=== PATIENT | female | born 1930 | race Caucasian/White ===

== ENCOUNTER 2016-10-06 15:35 | Emergency (ER) | payer OTHER, MEDICARE ==
--- NOTE | 2016-10-06 15:45 | UCPHY ---
H & P Patient Type: Established HPI/ROS: HPI CHIEF COMPLAINT: Right shoulder pain HISTORY OF PRESENT ILLNESS: this patient very pleasant 86-year-old female significant past medical history for atrial fibrillation, pacemaker, chronic kidney disease, hypertension, wheelchair bound due to his severe significant arthritis, generalized weakness, presents to the urgent care with right shoulder pain she tells me about 2 weeks ago she over extended her right arm. Her arm was pulled backwards. Since then she has had intermittent right shoulder pain. At times it gets better but however at times gets worse. She tells me the past 24 hours she has anterior right shoulder pain that is worse. She thinks she may have re-injured it. She is able to adduct it however has trouble when she abducts it. This patient tells me that she does have available oxycodone however is not take anything for pain. She cannot take NSAIDs due to underlying kidney disease. Past Medical History: Hypertension, AFib, pacemaker, severe arthritis, sedentary, wheelchair-bound, chronic kidney disease, hypertension on Coumadin Past Surgical History: Bilateral knee replacements, hip surgery, pacemaker Social History: denies use of drugs alcohol tobacco products. Wheelchair bound. at bedside. Family History: Noncontributory ROS REVIEW OF SYSTEMS: A comprehensive 10 point review of systems is otherwise negative aside from elements mentioned in the history of present illness. Exam Constitutional triage nursing summary reviewed, vital signs reviewed, awake/ alert. Eyes normal conjunctivae and sclera, EOMI, PERRLA. HENT normal inspection, atraumatic, moist mucus membranes, no epistaxis, neck supple/ no meningismus, no raccoon eyes. Respiratory clear to auscultation bilaterally, normal breath sounds, no respiratory distress, no wheezing. Cardiovascular rate normal, regular rhythm, no murmur, no edema, distal pulses normal. Gastrointestinal soft, non-tender, no rebound, no guarding, normal bowel sounds, no distension, no pulsatile mass. Genitourinary no CVA tenderness. 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 Skin pink, warm, & dry, no rash, skin atraumatic. Neurologic awake, alert and oriented x 3, AAOx3, moves all 4 extremities equally, motor intact, sensory intact, CN II-XII intact, normal cerebellar, normal vision, normal speech. Psychiatric normal mood/affect. Heme/Lymph/Immune no lymphadenopathy. Differential Diagnosis: includes but is not limited to in a particular, shoulder strain, musculoskeletal injury, arthritis, humeral neck fracture, dislocation relocation dislocation, rotator cuff injury, deltoid injury Medical Decision Making: plan for this patient had x-ray right shoulder [place] for pain control. Do recommend close orthopedic follow-up as she may have a rotator cuff injury. May need steroid injection. Re-evaluation: ED x-ray right shoulder: Shows tendinopathy in arthritis. No acute fracture. Image interpreted by myself. 1650: Patient is resting comfortably here in the urgent care, x-ray reviewed shows tendinopathy arthritis. Will place patient on [place]. She needs to follow up with Orthopedics. May need injection. She is agreeable with this. Source: Patient - Medical/Surgical History Hx Asthma: No Hx Chronic Respiratory Disease: No Hx Diabetes: No Hx Cardiac Disease: Yes Hx Renal Disease: Yes Hx Cirrhosis: No Hx Alcoholism: No Hx HIV/AIDS: No Hx Splenectomy or Spleen Trauma: No Other PMH: 1. HTN. 2. HYPERLIP. 3. AFIB status post PACEMAKER. 4. NEUROPATHY. 5. OSTEOSPOROSIS. 6. AUTONOMIC DYSFX. 7. CHRONIC KIDNEY DZ STG 4, . 8. gall bladder removal. 9. fundiplacation. 10. GOUT. 11. DIVERTICULITIS. 12. Orthopedic surgeries including a right hip arthroplasty and right knee arthroplasty - Family History Significant Family History: No pertinent family hx - Social History Smoking Status: Never smoked Constitutional: Initial Vital Signs Temperature (C) 36.7 C 10/06/16 15:46 Heart Rate 70 10/06/16 15:46 Respiratory Rate 18 10/06/16 15:46 Blood Pressure 166/69 H 10/06/16 15:46 O2 Sat (%) 98 10/06/16 15:46 O2 Delivery Mode Room Air Allergies/Adverse Reactions: NSAIDS (Non-Steroidal Anti-Inflamma [Nsaids] Allergy (Unknown, Verified 13:05) RELATED TO KIDNEY DISEASE IV Contrast Allergy (Uncoded 07/16/16 14:04) Home Medications: Medication Instructions Recorded Aspirin [Aspirin 81mg (*)] 81 mg PO DAILY@18 03/18/14 Atenolol [Tenormin 50 mg (*)] 50 mg PO BID 03/18/14 Calcium Carb/Vit D3/Minerals 500 mg PO DAILY 03/18/14 [Calcium 1,200 mg Tablet Chew] Gabapentin [Neurontin 100 MG (*)] 300 mg PO BID 03/18/14 Lisinopril [Zestril 10 mg (*)] 10 mg PO BID 03/18/14 amLODIPine BESYLATE [Norvasc 5 mg 5 mg PO DAILY@12 03/18/14 (*)] Herbals/Supplements -Info Only 1 ea PO DAILY 07/22/14 Warfarin Sodium [Coumadin 5MG (*)] 5 mg PO TUFR@16 07/22/14 ALPRAZolam [Xanax 0.5 MG (*)] 0.5 mg PO HS 11/14/15 Denosumab [Prolia] 60 mg SQ Q180D 11/14/15 Cholecalciferol Vit D3 [Vitamin D3 2,000 units PO DAILY 07/16/16 (*)] Warfarin Sodium [Coumadin 2.5MG 2.5 mg PO SUMOWETHSA 07/16/16 (*)] Docusate Sodium [Colace 100 MG (*)] 100 mg PO TID #30 cap 07/21/16 Hydrocodone/APAP 5/325 [[place] 1 - 2 tab PO Q4-6PRN PRN #30 tab 07/21/16 5/325 (*)] Hydrocodone/APAP 5/325 [[place] 1 - 2 tab PO Q6H PRN #20 tab 10/06/16 5/325 (*)] Medical Decision Making - Data Points Medications Given: Discontinued Medications Hydrocodone Bitart/Acetaminophen ([place] 5/325) 1 tab PO EDNOW ONE Stop: 10/06/16 15:50 Last Admin: 10/06/16 15:54 Dose: 1 tab Departure - Departure Disposition: Home, Routine, Self-Care Clinical Impression: Tendonitis Right shoulder strain Qualifiers: Encounter type: initial encounter Qualified Code(s): S46.911A - Strain of unspecified muscle, fascia and tendon at shoulder and upper arm level, right arm , initial encounter Condition: Good Instructions: Rotator Cuff Injury (ED) Referrals: Sarath Lara MD [Primary Care Provider] - As per Instructions Cy Cage MD [Medical Doctor] - As per Instructions Prescriptions: Hydrocodone/APAP 5/325 [[place] 5/325 (*)] 1 - 2 tab PO Q6H PRN #20 tab PRN Reason: Pain, Mild - PQRS PQRS Measurement: 134: Depression screening and followup, PRIME MD-PHQ2 (12 years and older) Over the last 2 weeks, how often have you been bothered by any of the following problems? 1. Feeling down, depressed, or hopeless? 2. Little interest or pleasure in doing things? Patient answered no to both 1 and 2 130: Documentation of medications. Reviewed all patient medications, doses, route and frequency. 226: Do you smoke? No. 47: 65 and older: Advanced care planning. Patient designates surrogate decision maker as Spouse 51: 18 years old and older with diagnosis of COPD, spirometry performance. Patient has no history of COPD 52: 18 years old and older with COPD and symptoms of COPD or FEV1<60% predicted prescribed a B Agonist. Spirometry not performed; equipment not available.
[2016-10-06 15:48] VITALS: BP 166/69; PULSE 70; RESP 18; TEMP 98.1; O2SAT 98
[2016-10-06] MEDS ORDERED: HYDROCODONE/APAP 5/325 TAB PO ONE (15:49)
== END 2016-10-06 17:20 | disposition home or self-care (01) ==
LOC: CED 15:35
DX: S46.911A Strain of unspecified muscle, fascia and tendon at shoulder and upper arm level, right arm, initial encounter (principal); M75.31 Calcific tendinitis of right shoulder; Y92.019 Unspecified place in single-family (private) house as the place of occurrence of the external cause; X50.0XXA Overexertion from strenuous movement or load, initial encounter; Y99.8 Other external cause status
CPT/HCPCS: 73030; G0463; 99214-PO

== ENCOUNTER → 2017-03-13 | Outpatient (CLI) | payer OTHER, MEDICARE | LOC: BHCLAF 14:15 | PROVIDERS: ATTEND Internal Medicine Cardiovascular Disease | DX: I48.0 Paroxysmal atrial fibrillation (principal); I73.9 Peripheral vascular disease, unspecified; I10 Essential (primary) hypertension; Z95.0 Presence of cardiac pacemaker | CPT/HCPCS: 93005-PO ==

== ENCOUNTER 2017-04-30 09:27 | Emergency (ER) | payer OTHER, MEDICARE ==
[2017-04-30 09:51] VITALS: RESP 18
[2017-04-30 10:38] VITALS: O2SAT 98
--- NOTE | 2017-04-30 10:57 | EDPHY ---
H & P Stated Complaint: llq abd pain prior to evacuation Time Seen by Provider: 04/30/17 09:49 HPI/ROS: Chief Complaint: Abdominal pain, changes in bowel movements HPI: 86-year-old woman history of diverticulosis and chronic constipation is been having changes in her bowel movements in the last couple weeks. For the last week or 2 she has had loose stools. There has been no black stools or blood. Today she had some pain in the left lower quadrant is concerned about diverticulitis. Denies any fevers or chills. Yesterday afternoon she had several episodes of loose stools. No nausea or vomiting. No chest pain or shortness of breath. No urinary urgency or frequency. Pain is about a 3/10. ROS: 10 point Review of Systems is negative except as noted in the HPI. PMH: Diverticulosis, chronic constipation, renal insufficiency, [place] fundoplication Social History: No smoking, no alcohol, no recreational drug use Family History: non-contributory Physical Exam: Gen: Awake, Alert, No Distress HEENT: Nose: no rhinorrhea Eyes: PERRLA, EOMI Mouth: Moist mucosa Neck: Supple, no JVD Chest: nontender, lungs clear to auscultation Heart: S1, S2 normal, no murmur Abd: Soft, moderate left lower quadrant tenderness without guarding or rebound, no guarding Back: no CVA tenderness, no midline tenderness Ext: no edema, non-tender Skin: no rash Neuro: CN II-XII intact, Sensation grossly intact, Strength 5/5 in bilateral upper and lower extremities - Medical/Surgical History Hx Asthma: No Hx Chronic Respiratory Disease: No Hx Diabetes: No Hx Cardiac Disease: Yes Hx Renal Disease: Yes Hx Cirrhosis: No Hx Alcoholism: No Hx HIV/AIDS: No Hx Splenectomy or Spleen Trauma: No Other PMH: 1. HTN. 2. HYPERLIP. 3. AFIB status post PACEMAKER. 4. NEUROPATHY. 5. OSTEOSPOROSIS. 6. AUTONOMIC DYSFX. 7. CHRONIC KIDNEY DZ STG 4, . 8. gall bladder removal. 9. fundiplacation. 10. GOUT. 11. DIVERTICULITIS. 12. Orthopedic surgeries including a right hip arthroplasty and right knee arthroplasty - Social History Smoking Status: Never smoked Constitutional: Initial Vital Signs Temperature (C) 37.1 C 04/30/17 09:47 Heart Rate 73 04/30/17 09:47 Respiratory Rate 18 04/30/17 09:47 Blood Pressure 111/86 H 04/30/17 09:47 O2 Sat (%) 96 04/30/17 09:47 O2 Delivery Mode Room Air Allergies/Adverse Reactions: hydrocodone Allergy (Intermediate, Verified 04/30/17 09:42) [place] NSAIDS (Non-Steroidal Anti-Inflamma [Nsaids] Allergy (Unknown, Verified 09:42) RELATED TO KIDNEY DISEASE IV Contrast Allergy (Uncoded 07/16/16 14:04) Home Medications: Medication Instructions Recorded Aspirin [Aspirin 81mg (*)] 81 mg PO DAILY@18 03/18/14 Atenolol [Tenormin 50 mg (*)] 50 mg PO BID 03/18/14 Calcium Carb/Vit D3/Minerals 500 mg PO DAILY 03/18/14 [Calcium 1,200 mg Tablet Chew] Gabapentin [Neurontin 100 MG (*)] 300 mg PO BID 03/18/14 Lisinopril [Zestril 10 mg (*)] 10 mg PO BID 03/18/14 amLODIPine BESYLATE [Norvasc 5 mg 5 mg PO DAILY@12 03/18/14 (*)] Herbals/Supplements -Info Only 1 ea PO DAILY 07/22/14 Warfarin Sodium [Coumadin 5MG (*)] 5 mg PO TUFR@16 07/22/14 ALPRAZolam [Xanax 0.5 MG (*)] 0.5 mg PO HS 11/14/15 Denosumab [Prolia] 60 mg SQ Q180D 11/14/15 Cholecalciferol Vit D3 [Vitamin D3 2,000 units PO DAILY 07/16/16 (*)] Warfarin Sodium [Coumadin 2.5MG 2.5 mg PO SUMOWETHSA 07/16/16 (*)] Docusate Sodium [Colace 100 MG (*)] 100 mg PO TID #30 cap 07/21/16 oxyCODONE/APAP 5/325 [Percocet 1 - 2 tab PO Q6H PRN #20 tab 10/06/16 5/325 (*)] Medical Decision Making - Diagnostics Imaging Results: Imaging Impressions Abdomen/Pelvis CT 04/30/17 10:00 Impression: 1. Sigmoid diverticulosis, without evidence of diverticulitis. 2. Cholecystectomy. 3. Renal masses show no significant change from 2014 and are thought to be cysts. I telephoned [facility] Emergency Department and left a phone message for Dr. Sanchez at 1045 hours. Attention: This examination does not use radiographic contrast, and as such, provides only a limited evaluation of the abdomen, pelvis, and retroperitoneum. If there is further clinical suspicion for pathological conditions other than obstructive uropathy, a complete CT evaluation of the abdomen and pelvis utilizing intravenous, oral, and rectal contrast should be considered. Imaging: Discussed imaging studies w/ train caller Radiologist ED Course/Re-evaluation: 86-year-old with left lower quadrant pain history of diverticulosis with changes in her bowel patterns. She does have some tenderness here. Will obtain a CT scan with noncontrast as she has renal insufficiency and reassess. CT scan shows no acute process. She does have diverticulosis but no findings suggestive of inflammation. Patient has mild left lower quadrant tenderness with no peritoneal signs whatsoever. She has a history of C diff colitis in the past is very concerned about getting this again. Given the negative CT findings and benign exam I am hesitant to start her on antibiotics at this time. We have discussed at length possibilities for care. She would prefer to wait and follow up with primary care physician. We have made a appointment for her for Thursday at 10:30 a.m. with her primary, Dr. Lara. She knows that if symptoms worsen she will return to the emergency department. - Data Points Laboratory Results: 04/30/17 11:14 Urine Color Pending Urine Appearance Pending Urine pH Pending Ur Specific [place] Pending Urine Protein Pending Urine Ketones Pending Urine Blood Pending Urine Nitrate Pending Urine Bilirubin Pending Urine Urobilinogen Pending Ur Leukocyte Esterase Pending Urine Glucose Pending Departure - Departure Disposition: Home, Routine, Self-Care Clinical Impression: Abdominal pain, Diarrhea Condition: Good Instructions: Abdominal Pain (ED), Acute Diarrhea (ED) Additional Instructions: Follow up with Dr. Lara on Thursday. He have an appointment at 10:30 a.m. Return to the emergency department for increasing pain, worsening diarrhea, nausea, vomiting, blood in her stool or dark black bowel movements, or any other concerns. Referrals: Sarath Lara MD [Primary Care Provider] - As per Instructions
[2017-04-30 11:17] LABS: COLOR YELLOW; LEUKOCYTE ESTERASE,URINE NEGATIVE (NEGATIVE); NITRITE,URINE NEGATIVE (NEGATIVE); PH,URINE 7.5 (5.0-7.5)
[2017-04-30 11:45] VITALS: BP 148/87; PULSE 78; TEMP 98.1
== END 2017-04-30 11:42 | disposition home or self-care (01) ==
LOC: CED 09:27
DX: R10.32 Left lower quadrant pain (principal); R19.7 Diarrhea, unspecified; I12.9 Hypertensive chronic kidney disease with stage 1 through stage 4 chronic kidney disease, or unspecified chronic kidney disease; N18.4 Chronic kidney disease, stage 4 (severe); Z79.01 Long term (current) use of anticoagulants; Z79.82 Long term (current) use of aspirin; Z95.0 Presence of cardiac pacemaker
CPT/HCPCS: 74176-PO; 81003-PO

== ENCOUNTER 2017-09-22 13:01 | Observation (INO) | payer OTHER, MEDICARE ==
--- NOTE | 2017-09-22 13:10 | EDPHY ---
H & P Time Seen by Provider: 09/22/17 13:09 - Medical/Surgical History Hx Asthma: No Hx Chronic Respiratory Disease: No Hx Diabetes: No Hx Cardiac Disease: Yes Hx Renal Disease: Yes Hx Cirrhosis: No Hx Alcoholism: No Hx HIV/AIDS: No Hx Splenectomy or Spleen Trauma: No Other PMH: 1. HTN. 2. HYPERLIP. 3. AFIB status post PACEMAKER. 4. NEUROPATHY. 5. OSTEOSPOROSIS. 6. AUTONOMIC DYSFX. 7. CHRONIC KIDNEY DZ STG 4, . 8. gall bladder removal. 9. fundiplacation. 10. GOUT. 11. DIVERTICULITIS. 12. Orthopedic surgeries including a right hip arthroplasty and right knee arthroplasty - Social History Smoking Status: Never smoked Constitutional: Initial Vital Signs Temperature (C) 36.9 C 09/22/17 13:10 Heart Rate 80 09/22/17 13:10 Respiratory Rate 18 09/22/17 13:10 Blood Pressure 187/79 H 09/22/17 13:10 O2 Sat (%) 99 09/22/17 13:10 O2 Delivery Mode Room Air Allergies/Adverse Reactions: hydrocodone Allergy (Intermediate, Verified 09/22/17 13:42) [place] NSAIDS (Non-Steroidal Anti-Inflamma [Nsaids] Allergy (Unknown, Verified 13:42) RELATED TO KIDNEY DISEASE IV Contrast Allergy (Uncoded 07/16/16 14:04) Home Medications: Medication Instructions Recorded Aspirin [Aspirin 81mg (*)] 81 mg PO DAILY 03/18/14 Atenolol [Tenormin 50 mg (*)] 50 mg PO DAILY 03/18/14 Lisinopril [Zestril 10 mg (*)] 10 mg PO BID 03/18/14 Herbals/Supplements -Info Only 1 ea PO DAILY 07/22/14 Warfarin Sodium [Coumadin 5MG (*)] 5 mg PO MWF 07/22/14 ALPRAZolam [Xanax 0.5 MG (*)] 0.5 mg PO HS 11/14/15 Denosumab [Prolia] 60 mg SQ Q180D 11/14/15 Warfarin Sodium [Coumadin 2.5MG 2.5 mg PO SUTUTHSA@16 07/16/16 (*)] C/E/Zn/Cu/OM3/DHA/EPA/LUT/ZEAX 1 each PO DAILY@12 09/22/17 [Preservision Areds 2 Softgel] Gabapentin [Neurontin 300 MG (*)] 300 mg PO TID 09/22/17 amLODIPine BESYLATE [Norvasc 2.5 2.5 mg PO HS 09/22/17 mg (*)] Medical Decision Making ED Course/Re-evaluation: CHIEF COMPLAINT: Syncope HISTORY OF PRESENT ILLNESS: This patient is an 87 year old female with history of atrial fibrillation s/p pacer placement presenting following a syncopal episode today. She has history of syncope associated with her atrial fibrillation but states she hasn't passed out since she had her pacemaker placed. Today, she was sitting after a shower and fainted, falling forward. Her caught her and she did not sustain any trauma. She endorses a loss of consciousness of about 5 minutes. She has history of osteoporosis and has had several orthopedic procedures including cervical spinal surgery and right knee arthroscopy. She has noted a stiff neck recently. She usually ambulates with a walker and about 2.5 weeks ago, she had an episode where she felt extremely cold and weak but did not faint. At that time, she was unable to put any weight on her knee or bend it. The patient is unsure whether these episodes are related. She denies fever, chest pain, shortness of breath, headache, vision changes, numbness or paresthesias, incontinence, or other associated symptoms. REVIEW OF SYSTEMS: A 10 point review of systems was performed and is negative with the exception of the elements mentioned in the history of present illness. PHYSICAL EXAM: HR, BP, O2 Sat, RR. Temp noted General Appearance: Alert, well hydrated, appropriate, and non-toxic appearing. Head: Atraumatic without scalp tenderness or obvious injury Eyes: Pupils equal, round, reactive to light and accommodation, EOMI, no trauma , no injection. Ears: Clear bilaterally, no perforation, normal landmarks Nose: Atraumatic, no rhinorrhea, clear. Throat: There is no erythema or exudates, no lesions, normal tonsils, mucus membranes moist. Neck: Supple, 2+ carotid upstroke, nontender, no lymphadenopathy. Respiratory: No retractions, no distress, no wheezes, and no accessory muscle use. Lungs are clear to auscultation bilaterally. Cardiovascular: Regular rate and rhythm, no murmurs, rubs, or gallops. Bilateral carotid, radial, dorsalis pedis, and posterior tibial pulses intact. Good capillary refill all extremities. Gastrointestinal: Abdomen is soft, nontender, non-distended, no masses, no rebound, no guarding, no peritoneal signs. Musculoskeletal: Normal active ROM of all extremities, atraumatic. Neurological: Alert, appropriate, and interactive. The patient has normal DTRs and non-focal cranial nerves, motor, sensory, and cerebellar exam. Skin: No rashes, good turgor, no nodules on palpation. Past medical history: Hypertension. Hyperlipidemia. Atrial fibrillation s/p pacer placement. Neuropathy. Osteoporosis. Chronic kidney disease. Gout. Diverticulitis. Past surgical history: Cholecystectomy. Orthopedic surgeries including a right hip arthroplasty and right knee arthroplasty Family history: Noncontributory. Social history: Lives in [place]. . Retired. DIAGNOSTICS/PROCEDURES/CRITICAL CARE TIME: The 12 lead EKG was interpreted by myself. See hard copy and/or "tracemaster" electronic copy for interpretation. DIFFERENTIAL DIAGNOSIS: The differential diagnosis for the patient's syncope included but was not limited to vasovagal syncope, arrhythmia, dehydration, cardiogenic causes, neurogenic causes, and blood loss. MEDICAL DECISION [id number] year old female presents following a syncopal episode. Exam is unremarkable, no trauma. I offered admission for syncopal episode. The patient initially stated she is not interested in admission but after further explaining risks and reasons, she is amenable to this. Plan for pacemaker interrogation. Her pacer is [employer]. Plan for EKG, labs including CBC, chemistries, Troponin, D-dimer, BNP. EKG shows sinus rhythm, rate 70. Creatinine elevated at 1.3. D-dimer elevated at 0.60. I have low pretest probability for PE at this time as the patient presents with syncope, no chest pain or shortness of breath. Additionally she has history of recurrent syncopal episodes prior to her pacemaker placement. 14:[address] Llamas, loan broker. He accepts admission to PCU for syncope. - Data Points Laboratory Results: Laboratory Results 09/22/17 13:00 09/22/17 13:00 09/22/17 09/22/17 09/22/17 13:00 13:00 13:00 WBC 14.47 10^3/uL H 10^3/uL (3.80-9.50) RBC 4.93 10^6/uL 10^6/uL (4.18-5.33) Hgb 14.6 g/dL g/dL (12.6-16.3) Hct 43.7 % % (38.0-47.0) MCV 88.6 fL fL (81.5-99.8) MCH 29.6 pg pg (27.9-34.1) MCHC 33.4 g/dL g/dL (32.4-36.7) RDW 12.9 % % (11.5-15.2) Plt Count 468 10^3/uL H 10^3/uL (150-400) MPV 9.1 fL fL (8.7-11.7) Neut % (Auto) 68.6 % % (39.3-74.2) Lymph % (Auto) 17.6 % % (15.0-45.0) [place] % (Auto) 8.4 % % (4.5-13.0) Eos % (Auto) 4.1 % % (0.6-7.6) Baso % (Auto) 0.9 % % (0.3-1.7) Nucleat RBC Rel Count 0.0 % % (0.0-0.2) Absolute Neuts (auto) 9.93 10^3/uL H 10^3/uL (1.70-6.50) Absolute Lymphs (auto) 2.54 10^3/uL 10^3/uL (1.00-3.00) Absolute Monos (auto) 1.21 10^3/uL H 10^3/uL (0.30-0.80) Absolute Eos (auto) 0.60 10^3/uL H 10^3/uL (0.03-0.40) Absolute Basos (auto) 0.13 10^3/uL H 10^3/uL (0.02-0.10) Absolute Nucleated RBC 0.00 10^3/uL 10^3/uL (0-0.01) Immature Gran % 0.4 % % (0.0-1.1) Immature Gran # 0.06 10^3/uL 10^3/uL (0.00-0.10) D-Dimer 0.60 ug/mLFEU H ug/mLFEU (0.00-0.50) Sodium 140 mEq/L mEq/L (135-145) Potassium 4.2 mEq/L mEq/L (3.5-5.2) Chloride 99 mEq/L mEq/L (97-110) Carbon Dioxide 25 mEq/l mEq/l (22-31) Anion Gap 16 mEq/L mEq/L (8-16) BUN 16 mg/dL mg/dL (7-23) Creatinine 1.3 mg/dL H mg/dL (0.6-1.0) Estimated GFR 39 Glucose 132 mg/dL H mg/dL (70-100) Calcium 9.6 mg/dL mg/dL (8.5-10.4) Troponin I < 0.012 ng/mL ng/mL (0.000-0.034) NT-Pro-B Natriuret Pep 629 pg/mL H pg/mL (0-450) Departure - Departure Disposition: [facility] Inpatient Acute Clinical Impression: Syncope Qualifiers: Syncope type: unspecified Qualified Code(s): R55 - Syncope and collapse Condition: Fair Report Scribed for: Paxton Hannah Report Scribed by: Ev Williamson Date of Report: 09/22/17 Time of Report: 15:09
[2017-09-22 13:41] LABS: PLATELET COUNT 468 10^3/uL (150-400)
--- NOTE | 2017-09-22 13:58 | CPEKG ---
Heart Rate: 70 RR Interval: 857 P-R Interval: 163 QRSD Interval: 134 QT Interval: 460 QTC Interval: 497 P [place]: 0 QRS [place]: -30 T Wave [place]: 99 EKG Severity - ABNORMAL ECG - EKG Impression: SINUS RHYTHM EKG Impression: LEFT BUNDLE BRANCH BLOCK Electronically Signed By: Paxton Hannah 22-Sep-2017 14:09:33
[2017-09-22] MEDS ORDERED: ACETAMINOPHEN 325 MG TAB PO PRN (15:09)
--- NOTE | 2017-09-22 15:50 | GHP ---
[f rep st] HISTORY AND PHYSICAL DATE OF ADMISSION: 09/22/2017 CHIEF COMPLAINT: Syncope. HISTORY OF PRESENT ILLNESS: Ms. Hung is a pleasant 87-year-old female with a past medical hi story of atrial fibrillation, pacemaker placement, and hypertension, who was brought to the [facility] emergency room by EMS after she had had a syncopal episode at home earlier today. Her who was present with her and present at the bedside today states that she was getting gem ssed and struggling to get her shirt on when she basically went limp and lost consciousness. Her hus band states that the symptoms lasted for about 5 minutes. There was no seizure activity visualized. She did have loss of her urine. Otherwise, over the past weeks, she states that she has been feeling fine. She has not had any upper respiratory illnesses. No diarrheal illnesses or abdominal pains. She states that she has occasionally once or twice every week or two, felt some lightheadedness when walking. She states a couple months ago her in-office blood pressures were running low and Dr. Daily smith did reduce her dose of amlodipine at that point in time. She has not been having any chest pain or breathing difficulties. No pleuritic-type chest pains either. I reviewed the case with Dr. Landon greer. He was able to contact the [facility] to come interrogate her pacemaker to determine if any arrhythmias were present at the time of her symptoms. 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 PAST MEDICAL HISTORY: 1. Atrial fibrillation. 2. Pacemaker placement. 3. Hypertension. 4. Chronic kidney disease stage 3. 5. Esophageal reflux. PAST SURGICAL HISTORY: 1. Knee replacement x2 on the right. 2. Bilateral hip replacements. 3. Cholecystectomy. 4. [place] fundoplication. MEDICATIONS: This medication list is taken from her ambulatory order list. 1. Aspirin 81 mg daily. 2. Coumadin 5 mg every Thursday, Thursday, and Thursday. 3. Warfarin 2.5 mg on Thursday, Thursday, Thursday, . 4. Lisinopril 10 mg twice a day. 5. Atenolol 50 mg daily. 6. Amlodipine 2.5 mg daily. 7. Xanax 0.5 mg nightly. 8. Prolia. 9. Gabapentin 300 mg 3 times a day. ALLERGIES: NSAIDs related to her history of chronic kidney disease. FAMILY HISTORY: Mother and father are both . Her mother at the age of 58 secondary to colon cancer. Father in his late 80s from suspected heart related complications. SOCIAL HISTORY: Patient is a nonsmoker. She has children and grandchildren in the area. [facility] [place]. Her or her daughter would be her power of insurance defense attorney if unable to make m edical decisions. Code status was reviewed, and she is a do not attempt resuscitation code status. REVIEW OF SYSTEMS: Constitutional: No recent weight changes. No fevers or chills. ENT: No recent up per respiratory illnesses. CARDIOVASCULAR: No complaints of any chest pains, palpitations. No other syncopal episodes other than today. RESPIRATORY: No complaints of shortness of breath, productive c ough for pleuritic-type chest pain. No hemoptysis. GASTROINTESTINAL: No nausea, vomiting, diarrhea, or constipation. No focal abdominal pain. GENITOURINARY: No report of any difficulty with urinatio n other than the loss of her urine today with a syncopal episode. NEUROLOGIC: No history of any sei zures. No report of any seizure activity today either. She notes a twitch of her right foot that st arted today. HEMATOLOGIC: No history of any deep vein thrombosis or pulmonary embolism. PSYCHIATRIC : No history of anxiety or depression. She is on benzodiazepine therapy. ENDOCRINE: No history of di abetes or thyroid abnormalities.. SKIN: No new or concerning skin rashes. MUSCULOSKELETAL: She does h ave complaints of chronic neck and back pain. PHYSICAL EXAMINATION: VITAL SIGNS: Temperature 36.9, blood pressure is 137/79, heart rate 80, respi rations 18, saturating 99% on room air. GENERAL: Patient appears comfortable. Sh is awake, alert, co nversant, able to provide a good history. She appears alert and oriented x3. HEENT: Extraocular mo vements appear intact. No scleral icterus. Mucous membranes moist. NECK: No carotid bruit is appre ciated. No thyroid enlargement noted. CHEST: Clear to auscultation with normal respiratory effort. No significant wheezing. HEART: Regular. No murmurs noted. ABDOMEN: Soft, nontender, nondisten ded. GENITOURINARY: No Retana catheter in place. EXTREMITIES: No significant pitting edema. NEUROLOGI C: Cranial nerves 2 through 12 appear intact. 5/5 strength in upper extremities and 4/5 strength in l ower extremities. LABORATORY STUDIES: White blood cell count 14, hemoglobin 14, platelets 468. Sodium is 140, potassi um 4.2, chloride 99, bicarb 25, BUN 16, creatinine is 1.3 with an estimated baseline creatinine somew here ranging between 1.2 and 1.6. Glucose level is 132. D-dimer was 0.60 and her age adjusted D-dim er cutoff would be 0.86. BNP 629. Troponin less than 0.012. BNP 629. Troponin less than 0.012. ASSESSMENT/PLAN: 1. Syncope. The patient had an isolated syncopal episode today lasting approximately 5 minutes per her . She has had recent lightheadedness she describes but no actual syncopal episodes. She does have a pacemaker placed and the [facility] has been contacted to come interrogate the pacemaker to see if any arrhythmias at the time of her event. Of note, her blood pressure medication s were lowered recently by her primary care provider, Dr. Lara. Her blood pressures here appear elevated, but she states this is often the case when she is in the emergency room. I recommend that we trend this closely through the evening time. I recommended to keep her atenolol and amlodipine at the current dosing. I will try to reduce her lisinopril for now just to 10 mg once a day instead of twice a day and we will see what type of blood pressure readings she is obtaining with this regimen. Perhaps a dose reduction may be reasonable. I will check an echocardiogram in the morning. Consid er the possibility of a pulmonary embolism. However, it sounds like she has been appropriately antic oagulated, but I will confirm this with an INR. I would not recommend pursuing CT angiography in lig ht of her chronic kidney disease, but a V/Q scan could be considered, but I think it is relatively lo w risk at this point in time as she has been saturating normal on room air and no other symptoms to s uggest pulmonary embolism. 2. Leukocytosis, possibly reactive at 14. No fevers noted yet. She does have mildly elevated white blood cell counts noted in the past here at [facility]. We will check a chest x-ray and urinalysis. Monitor for any fevers. For now, I am not going to start any antibiotic therapy un less she was to develop a fever. 3. Atrial fibrillation, rate controlled. Continue with atenolol and she is anticoagulated with Coum jammie. 4. Hypertension. We will dose adjust lisinopril down to 10 mg once a day from twice a day. Otherwi se, continue atenolol 50 mg daily and amlodipine 2.5 mg daily. 5. Chronic kidney disease stage 3. Her baseline creatinine seems to be between 1.2 and 1.6. She is at 1.3 today. 6. Deep venous thrombosis prophylaxis. Heparin. 7. Disposition. I will admit her under observation status as if unremarkable workup, she could pote ntially return home tomorrow. /[id number]/MODL
[2017-09-22] MEDS: GABAPENTIN 300 MG CAP PO SCH ×2 (17:13→21:10)
[2017-09-22 17:18] LABS: INR 2.56 (0.83-1.16); PROTIME(PATIENT) 27.5 SEC (12.0-15.0)
[2017-09-22] MEDS ORDERED: WARFARIN SODIUM 2.5 MG TAB PO SCH (17:30)
[2017-09-22] MEDS ORDERED: ALPRAZolam 0.5 MG TAB PO SCH (21:45)
[2017-09-23 04:15] LABS: PLATELET COUNT 292 10^3/uL (150-400)
[2017-09-23 04:25] LABS: INR 2.9 (0.83-1.16); PROTIME(PATIENT) 30.2 SEC (12.0-15.0)
[2017-09-23 08:09] VITALS: TEMP 97.4
[2017-09-23] MEDS: GABAPENTIN 300 MG CAP PO SCH (08:49)
[2017-09-23] MEDS ORDERED: LISINOPRIL 10 MG TAB PO SCH (09:00)
[2017-09-23] MEDS ORDERED: ATENOLOL 50 MG TAB PO SCH (09:00)
[2017-09-23] MEDS ORDERED: ASPIRIN 81 MG CHEWABLE TAB PO SCH (09:00)
--- NOTE | 2017-09-23 10:31 | ECHO ---
[email or web address] [address] Main: [phone] Fax: Transthoracic Echocardiogram Name: ROSETTA LACEY MR#: [id number] Study Date: 09/23/2017 Study Time: 08:12 AM Date of : 1930 Age: 87 year(s) Height: 162.6 cm (64 in.) Weight: 70.31 kg (155 lb.) BSA: 1.76 m2 Gender: Female Examination: Echo Indication: Cardiac: syncope, hx pacer Image Quality: Contrast: Requested by: Jerad Llamas BP: / Heart Rate: Rhythm: Indication: Cardiac: syncope, hx pacer Procedure Staff Colon Therapist: Bertha Casas RDCS Reading Physician: Raymond Arrieta MD Requesting Provider: Colon Therapist: Reading Physician: Requesting Provider: Conclusions: Normal size left ventricle. No LV hypertrophy. Global hypercontractility of the left ventricle. The ejection fraction is estimated to be 65-70 %. Normal diastolic LV function. Abnormal septal motion most likely secondary to pacemaker/bundle branch.. Normal size right ventricle. There is a pacemaker lead noted in the right ventricle. Trivial mitral valve regurgitation. Trivial aortic valve regurgitation. The pulmonary artery pressure is normal. Measurements: Chambers Valvular Assessment AV/MV Valvular Assessment TV/PV Normal Normal Normal Name Value Range Name Value Range Name Value Range Ao Taya (MM): 3.4 cm (2.2 cm-3.7 AV Vmax: 0.79 m/s (1 m/s-1.7 TR Vmax: 2.43 mm/s ( - ) cm) m/s) TR PGmax: 24 mmHg ( - ) IVSd (2D): 0.8 cm (0.6 cm-1.1 AV maxP mmHg ( - ) syst. PAP: 29 mmHg ( - ) cm) MV E Vmax: 0.52 m/s ( - ) LVDd (2D): 4.3 cm (3.9 cm-5.3 MV A Vmax: 0.68 m/s ( - ) cm) MV E/A: 0.76 ( - ) LVDs (2D): 3.1 cm (2.1 cm-4 cm) LVPWd (2D): 0.8 cm ( - ) LVEF (MOD4): 66 % (>=55 %) Patient: ROSETTA LACEY Study Date: 09/23/2017 Page 1 of 2 08:12 AM EF Range: 65-70 % Continued Measurements: Chambers Valvular Assessment AV/MV Valvular Assessment TV/PV Name Value Name Value Name Value LADs: 4.0 cm MV E/E' Septal: 12.90 CVP (est.): 5 mmHg LADs Lon.3 cm MV E/E' Lateral: 10.20 LA Area: 16.2 cm2 Findings: Left Ventricle: Normal size left ventricle. No LV hypertrophy. Global hypercontractility of the left ventricle. The ejection fraction is estimated to be 65-70 %. Normal diastolic LV function. Abnormal septal motion most likely secondary to pacemaker/bundle branch.. Right Ventricle: Normal size right ventricle. There is a pacemaker lead noted in the right ventricle. Left Atrium: The left atrium is normal in size. Right Atrium: The right atrium is normal in size. Mitral Valve: Mild mitral annular calcification. Trivial mitral valve regurgitation. Aortic Valve: Minimal aortic cusp calcification is noted. Trivial aortic valve regurgitation. Tricuspid Valve: The tricuspid valve is normal in appearance and function. Mild tricuspid regurgitation is present. The pulmonary artery pressure is normal. Pulmonic Valve: Pulmonary valve not well visualized. Trivial pulmonic valve regurgitation. Aorta: The aorta is normal. Pericardium: No pericardial effusion. There is pericardial fat. (No Signature Object) Patient: ROSETTA LACEY Study Date: 09/23/2017 Page 2 of 2 08:12 AM D:_[id number]
[2017-09-23 11:09] VITALS: BP 133/64; PULSE 77; RESP 15; O2SAT 95
--- NOTE | 2017-09-23 12:38 | HOSPPROG ---
Hospitalist Progress Note Assessment/Plan: 87 yo F w syncope likely orthostatic decrease lisinopril to daily home today see dc summary Subjective: no events telemetry. anxious for dc Objective: Vital Signs Temp Pulse Resp BP Pulse Ox 36.3 C 77 15 133/64 H 95 09/23/17 11:08 09/23/17 11:08 09/23/17 11:08 09/23/17 11:08 09/23/17 11:08 Laboratory Results 09/23/17 03:40 09/23/17 03:40 09/22/17 09/23/17 09/24/17 05:59 05:59 05:59 Intake Total 400 200 Output Total 400 Balance 0 200 PT 30.2 SEC (12.0-15.0) H 09/23/17 03:40 INR 2.90 (0.83-1.16) H 09/23/17 03:40 - Physical Exam Constitutional: no apparent distress, appears nourished Eyes: PERRL, anicteric sclera Ears, Nose, Mouth, Throat: moist mucous membranes, hearing normal Cardiovascular: regular rate and rhythym, no murmur, rub, or gallop, No systolic murmur Respiratory: no respiratory distress, no rales or rhonchi Gastrointestinal: normoactive bowel sounds, soft, non-tender abdomen Genitourinary: no bladder fullness Skin: warm Musculoskeletal: full muscle strength Neurologic: AAOx3 ICD10 Worksheet Patient Problems: Problems Problem Status Onset Syncope Acute Back pain Acute C. difficile diarrhea Acute 11/19/15 Chest pain Acute Elbow laceration Acute Fall Acute Knee pain, acute Acute Multiple contusions Acute A-fib Chronic
--- NOTE | 2017-09-23 12:42 | PDIAF ---
- Diagnosis Diagnosis: syncope Code Status: Do Not Resuscitate - Medication Management Discharge Medications: Medications to Continue on Transfer Aspirin [Aspirin 81mg (*)] 81 mg PO DAILY 03/18/14 [Last Taken 09/22/17] Atenolol [Tenormin 50 mg (*)] 50 mg PO DAILY 03/18/14 [Last Taken 09/22/17] Herbals/Supplements -Info Only 1 ea PO DAILY 07/22/14 [Last Taken 07/16/16] Warfarin Sodium [Coumadin 5MG (*)] 5 mg PO MWF 07/22/14 [Last Taken 09/14/17] ALPRAZolam [Xanax 0.5 MG (*)] 0.5 mg PO HS 11/14/15 [Last Taken 09/21/17] Denosumab [Prolia] 60 mg SQ Q180D 11/14/15 [Last Taken Unknown] Warfarin Sodium [Coumadin 2.5MG (*)] 2.5 mg PO SUTUTHSA@16 07/16/16 [Last Taken 09/15/17] C/E/Zn/Cu/OM3/DHA/EPA/LUT/ZEAX [Preservision Areds 2 Softgel] 1 each PO DAILY@ 12 09/22/17 [Last Taken 09/21/17] Gabapentin [Neurontin 300 MG (*)] 300 mg PO TID 09/22/17 [Last Taken 09/22/17] amLODIPine BESYLATE [Norvasc 2.5 mg (*)] 2.5 mg PO HS 09/22/17 [Last Taken 09/21] Lisinopril [Zestril 10 mg (*)] 10 mg PO DAILY tab 09/23/17 [Last Taken Unknown] Discharge Medications: Refer to the Discharge Home Medication list for PRN reason. - Orders Services needed: Registered Nurse, Physical Therapy, Occupational Therapy Isolation Type: None - Follow Up Care Current Providers and Referrals: Patient,NotPresent [Unknown] - As per Instructions
--- NOTE | 2017-09-23 12:58 | GDS ---
[f rep st] DISCHARGE SUMMARY DISCHARGE DIAGNOSES: 1. Syncope, likely vasovagal. 2. History of atrial fibrillation with pacer. 3. Pacemaker placement. 4. Non-flow limiting carotid vascular disease. 5. Osteoarthritis with chronic joint pain. 6. Stage 3 chronic kidney disease. 7. Reflux. Please see admission history and physical by Dr. Jerad Llamas. The patient presented with syncope. She had a nonischemic EKG negative. She had a therapeutic INR, so PE was felt unlikely. Her EKG sh owed a left bundle branch block pattern, which was not new. She had negative troponin. She had a pa analy rhythm. Her pacer was interrogated, showing about a half an hour of atrial fibrillation with a r ate of 100 yesterday. She had several less than 10-second episodes of nonsustained ventricular tachy cardia. She has an intact ejection fraction. An echocardiogram showed diastolic dysfunction only, w ithout significant valvular lesions. This is consistent with a negative syncope workup, and she is discharged home. Notable is blood pres sures that are sometimes on the low side. Dr. Llamas decreased her lisinopril to 10 daily from 10 b. i.d., and I recommended continuing this, and I have discussed this with her. I will arrange home PT, OT and RN for her. /[id number]/MODL
--- NOTE | 2017-09-23 13:23 | ASMTCASEMG ---
Living Arrangements What is your living Answers: With Spouse arrangement? Who do you live with? Type Of Residence What kind of residence do Answers: House you live in? Discharge Plan Comments Coordination Status Comments Notes: Pts case discussed in morning rounds. Pt is a 87 y/o female admitted for syncope. Pt receives a couple of hours a week of caregiving (helps w/ meals, cleaning and ADLs). Therapies have been ordered. OT is recommending HC. CM spoke to Dr. Barnes. Dr. Barnes is recommending HC. Referral made to [facility]. [facility] will be able to follow. CM provided ATTILA Mcnair w/ phone number to give report. Pt reports that her will be able to pick her up. CM available for changes. Plan: [facility] alongside private duty non skilled HC Date Signed: 09/23/2017 01:23 PM Electronically Signed By:CARLOS Bell
--- NOTE | 2017-09-23 13:24 | ASMTLACE ---
LACE Length of stay for Answers: 1 day current admission Acuity / Level of Answers: Yes Care: Did the patient have an inpatient admission? Comorbidities - select Answers: History of falls all that apply Other Notes: CKD Stage 3, HTN, Pacemaker placement # of Emergency department Answers: 1-2 visits in the last 6 months Score: 9 Date Signed: 09/23/2017 01:24 PM Electronically Signed By:CARLOS Bell
--- NOTE | 2017-09-23 15:20 | ASDISCHSUM ---
Discharge Information Plan Status:Home with Home Health Medically Cleared to Leave:09/22/2017 Discharge Date:09/23/2017 02:15 PM CM D/C Disposition: ADT D/C Disposition:Home Health Service Projected Discharge Date:09/23/2017 12:00 AM Transportation at D/C: Discharge Delay Reason: Follow-Up Date:09/23/2017 12:00 AM Discharge Slot: Final Diagnosis: Placement Information Referral Type:*Home Health Care Services Referral ID:[id number] Provider Name:[facility] Care Address 1:[address] [place] [address] Address 2: City:[place] Selection Factors: State:[place] Patient Contact Information Contact Name:MERY Relationship: Address:[address] [place] [address] Work Phone: [facility] Alternate Phone: State/Zip Code:[place] [address] Email: Financial Information Financial Class:Medicare Primary Plan Desc:MEDICARE OUTPATIENT Primary Plan Number:[id number] Secondary Plan Desc:THEA/MDR SUPPLEMENT Secondary Plan Number:[id number] Assessment Information LACE LACE Length of stay for Answers: 1 day current admission Acuity / Level of Answers: Yes Care: Did the patient have an inpatient admission? Comorbidities - select Answers: History of falls all that apply Other Notes: CKD Stage 3, HTN, Pacemaker placement # of Emergency department Answers: 1-2 visits in the last 6 months Score: 9 Date Signed: 09/23/2017 01:24 PM Electronically Signed By:CARLOS Bell [facility] Initial CM Assessment Living Arrangements What is your living Answers: With Spouse arrangement? Who do you live with? Type Of Residence What kind of residence do Answers: House you live in? Discharge Plan Comments Coordination Status Comments Notes: Pts case discussed in morning rounds. Pt is a 87 y/o female admitted for syncope. Pt receives a couple of hours a week of caregiving (helps w/ meals, cleaning and ADLs). Therapies have been ordered. OT is recommending HC. CM spoke to Dr. Barnes. Dr. Barnes is recommending HC. Referral made to [facility]. [facility] will be able to follow. CM provided ATTILA Mcnair w/ phone number to give report. Pt reports that her will be able to pick her up. CM available for changes. Plan: [facility] alongside private duty non skilled HC Date Signed: 09/23/2017 01:23 PM Electronically Signed By:CARLOS Bell Intervention Information Intervention Type:*JORGE-Signed Date of Service:09/23/2017 11:31 AM Patient Type:Observation Staff Member:Patricia Armendariz Hours: Discipline: Severity: Comment:
[2017-09-23] MEDS ORDERED: WARFARIN SODIUM 2.5 MG TAB PO ONE (16:00)
[2017-09-23] MEDS ORDERED: WARFARIN SODIUM 5 MG TAB PO SCH (16:00)
[2017-09-23] MEDS ORDERED: ALPRAZolam 0.25 MG TAB PO SCH (21:00)
== END 2017-09-23 14:15 | disposition home health service (06) ==
LOC: EDUNIT# → F2W 15:13
PROVIDERS: ADMIT Internal Medicine; ATTEND Internal Medicine
DX: R55 Syncope and collapse (principal); I48.91 Unspecified atrial fibrillation; D72.829 Elevated white blood cell count, unspecified; I44.7 Left bundle-branch block, unspecified; I12.9 Hypertensive chronic kidney disease with stage 1 through stage 4 chronic kidney disease, or unspecified chronic kidney disease; N18.3 Chronic kidney disease, stage 3 (moderate); I77.9 Disorder of arteries and arterioles, unspecified; G62.9 Polyneuropathy, unspecified; E78.5 Hyperlipidemia, unspecified; M10.9 Gout, unspecified; G89.29 Other chronic pain; M81.0 Age-related osteoporosis without current pathological fracture; K21.9 Gastro-esophageal reflux disease without esophagitis; F41.9 Anxiety disorder, unspecified; Z79.82 Long term (current) use of aspirin; Z79.01 Long term (current) use of anticoagulants; Z95.0 Presence of cardiac pacemaker; Z96.643 Presence of artificial hip joint, bilateral; Z96.651 Presence of right artificial knee joint; Z66 Do not resuscitate
CPT/HCPCS: 71045; 92610; 93005; 93306; 93880; 97165; 97535; G0378; G8987; G8988; G8989; G8996; G8997; G8998

== ENCOUNTER 2017-10-06 10:41 | Emergency (ER) | payer OTHER, MEDICARE ==
[2017-10-06 10:50] VITALS: PULSE 84; RESP 20; TEMP 98.1; O2SAT 96
--- NOTE | 2017-10-06 11:13 | EDPHY ---
H & P Time Seen by Provider: 10/06/17 10:43 HPI/ROS: CHIEF COMPLAINT: Neck pain History by patient HISTORY OF PRESENT ILLNESS: 87-year-old woman with multiple medical problems and longstanding history of "neck and spine issues"per the patient presents complaining of ongoing neck pain and stiffness. She localized pain to her lower C-spine and says it hurts more when she rotates her head side to side. She feels that this pain which she has had chronically for many years and in fact saw a neurosurgeon for about 15 years ago has been worse over the past month santamaria she spent a long visit with her daughter with her head turned to the right so she could see her while they were talking. Patient states that she is very sedentary and then get up and around months. Patient was seen in the hospital for syncopal episode 1 week ago was discharged home with physical therapy to increase her mobility which she says she has been doing. She has also been newly using a forearm walker with physical therapist which she says does exacerbate of the discomfort in her neck and the muscles around her shoulders. There was no trauma when she had the syncopal episode she did not hit her head or neck. She denies any recent trauma since the neck pain has worsened. There has also been no fever. The patient denies any focal numbness tingling or shooting pains down her arms. She says she has had an MRI of her neck but the past before she had her pacemaker placed in 2012. She has a history of compression fractures in her T-spine. She does feel that this neck pain is typical for her ongoing chronic neck symptoms. She takes Tylenol with some relief and uses ice with some relief. REVIEW OF SYSTEMS: As in HPI, and all other systems reviewed and are negative Smoking Status: Never smoked Physical Exam: General Appearance: Alert, elderly, pleasant. Head: Normocephalic, atraumatic Eyes: Pupils equal and round, no pallor or injection. ENT, Mouth: Mucous membranes moist. Neck: Mild bony tenderness over lower C-spine and upper T-spine, somewhat limited range of motion due to pain when she rotates her head either right or left, full flexion, limited extension due to pain, positive tenderness along trapezius muscles bilaterally Neurological: Awake, alert and oriented x 3, no pronator drift, normal gait, no pronator drift, radial, median and ulnar nerve intact motor and sensory in bilateral hands Back: No bony tenderness, positive kyphosis Skin: Warm and dry, no rashes. Musculoskeletal: Neck is supple, FROM, nontender. Extremities: symmetrical, full range of motion. Psychiatric: Patient has normal affect, there is no agitation. Constitutional: Initial Vital Signs Temperature (C) 36.7 C 10/06/17 10:46 Heart Rate 84 10/06/17 10:46 Respiratory Rate 20 10/06/17 10:46 O2 Sat (%) 96 10/06/17 10:46 O2 Delivery Mode Room Air Allergies/Adverse Reactions: hydrocodone Allergy (Intermediate, Verified 10/06/17 10:51) Flushing NSAIDS (Non-Steroidal Anti-Inflamma [NSAIDS (Non-Steroidal Anti-Inflammatory Drug)] Allergy (Unknown, Verified 10/06/17 10:51) RELATED TO KIDNEY DISEASE IV Contrast Allergy (Uncoded 07/16/16 14:04) Home Medications: Medication Instructions Recorded Aspirin [Aspirin 81mg (*)] 81 mg PO DAILY 03/18/14 Atenolol [Tenormin 50 mg (*)] 50 mg PO DAILY 03/18/14 Herbals/Supplements -Info Only 1 ea PO DAILY 07/22/14 Warfarin Sodium [Coumadin 5MG (*)] 5 mg PO MWF 07/22/14 ALPRAZolam [Xanax 0.5 MG (*)] 0.5 mg PO HS 11/14/15 Denosumab [Prolia] 60 mg SQ Q180D 11/14/15 Warfarin Sodium [Coumadin 2.5MG 2.5 mg PO SUTUTHSA@16 07/16/16 (*)] C/E/Zn/Cu/OM3/DHA/EPA/LUT/ZEAX 1 each PO DAILY@12 09/22/17 [Preservision Areds 2 Softgel] Gabapentin [Neurontin 300 MG (*)] 300 mg PO TID 09/22/17 amLODIPine BESYLATE [Norvasc 2.5 2.5 mg PO HS 09/22/17 mg (*)] Lisinopril [Zestril 10 mg (*)] 10 mg PO DAILY tab 09/23/17 MDM/Departure - [facility] ED Course/Re-evaluation: 87-year-old elderly woman with chronic neck pain which is somewhat exacerbated over the past month but with no evidence of nerve involvement. There is also no history of trauma. The patient has palpable muscle tenderness as well. Although I cannot exclude a new cervical spine compression fracture, we did discuss imaging at this point the patient does not want an x-ray. She is not a surgical candidate and states she does not want surgery. I am recommending ongoing symptomatic treatment with acetaminophen and icing and heat as needed, and consideration of massage. I recommended she discuss the neck involvement with her physical therapist as increasing her mobility overall may increase her mobility in her neck. I also recommend close follow-up with her primary care physician to recheck how she is doing in 1-2 weeks and consider imaging if her symptoms seem to be getting worsening or are not well controlled. Patient and her understand and are agreeable to this plan. - Depart Disposition: Home, Routine, Self-Care Clinical Impression: Neck pain without injury Condition: Fair Instructions: Chronic Neck Pain (DC) Additional Instructions: You were seen by Dr. Marian Monique today. I recommend acetaminophen (Tylenol) 650 mg 4 times daily or if this is inadequate try 1000 mg 4 times daily. Continue icing as you had been and try also heat pads. I recommend trying some massage. Working with her physical therapist to increase her mobility will also likely improve the mobility of your neck. If your symptoms persist or get worse then please follow up with her primary care physician and consider x-rays or CT scan of her neck at that time. I recommend following up with the primary care physician in 2-3 weeks to re- evaluate how your neck is doing in either case. Return for any worsening or new concerns. Referrals: Sarath Lara MD [Primary Care Provider] - As per Instructions
== END 2017-10-06 11:20 | disposition home or self-care (01) ==
LOC: CED 10:41
DX: M54.2 Cervicalgia (principal); Z79.01 Long term (current) use of anticoagulants; Z79.82 Long term (current) use of aspirin

== ENCOUNTER 2017-10-07 17:31 | Observation (INO) | payer OTHER, MEDICARE ==
--- NOTE | 2017-10-07 18:04 | EDPHY ---
H & P Stated Complaint: PT. states noticed blood in toilet after bm this am,inr 4 @ home today Time Seen by Provider: 10/07/17 17:55 HPI/ROS: CHIEF COMPLAINT: Bright red blood per rectum History by patient HISTORY OF PRESENT ILLNESS: 87-year-old woman on warfarin for AFib presents because of passing bright red blood per rectum this morning. Patient states she had difficult bowel movement strain at stool and then when she finished there was bright red blood in the bowl. She says she has not had any ongoing bleeding. She has had some mild lower abdominal discomfort and a feeling of "bloating". There has been no nausea, vomiting or hematemesis. She has not eaten today very much because she has been"too busy" calling doctors. She denies any syncope or near syncope. She has had no chest pain or shortness of breath. Patient checks her INR with a home test in says her INR was 4 today. REVIEW OF SYSTEMS: As in HPI, and all other systems reviewed and are negative Source: Patient - Medical/Surgical History Hx Asthma: No Hx Chronic Respiratory Disease: No Hx Diabetes: No Hx Cardiac Disease: Yes Hx Renal Disease: Yes Hx Cirrhosis: No Hx Alcoholism: No Hx HIV/AIDS: No Hx Splenectomy or Spleen Trauma: No Other PMH: 1. HTN. 2. HYPERLIP. 3. AFIB status post PACEMAKER. 4. NEUROPATHY. 5. OSTEOSPOROSIS. 6. AUTONOMIC DYSFX. 7. CHRONIC KIDNEY DZ STG 4, . 8. gall bladder removal. 9. fundiplacation. 10. GOUT. 11. DIVERTICULITIS. 12. Orthopedic surgeries including a right hip arthroplasty and right knee arthroplasty. 13.Cataracts - Social History Smoking Status: Never smoked - Physical Exam Exam: General Appearance: Alert, elderly, pleasant. Eyes: Pupils equal and round, extraocular movements intact, no pallor or injection. Mouth: Mucous membranes moist. Pharynx clear Respiratory: Normal, effort, lungs are clear to auscultation. No wheezes, rales or rhonchi. Cardiovascular: Regular rate and rhythm. S1, S2, no murmurs, gallops or rubs appreciated Gastrointestinal: bowel sounds present, Abdomen is soft and mild left lower quadrant tenderness, no masses Rectal: Normal tone, empty vault with bright red blood on glove, no palpable hemorrhoids, no tenderness Back: Kyphotic Neurological: Awake, alert and oriented x 3, no pronator drift, normal gait, no pronator drift Skin: Warm and dry, no rashes. Musculoskeletal: No deformities or tenderness. Extremities: full range of motion, no edema Psychiatric: Patient has normal affect, there is no agitation. Constitutional: Initial Vital Signs Temperature (C) 36.7 C 10/07/17 17:48 Heart Rate 73 10/07/17 17:48 Respiratory Rate 16 10/07/17 17:48 Blood Pressure 174/104 H 10/07/17 17:48 O2 Sat (%) 96 10/07/17 17:48 O2 Delivery Mode Room Air Allergies/Adverse Reactions: hydrocodone Allergy (Intermediate, Verified 10/07/17 17:45) Flushing NSAIDS (Non-Steroidal Anti-Inflamma [NSAIDS (Non-Steroidal Anti-Inflammatory Drug)] Allergy (Unknown, Verified 10/07/17 17:45) RELATED TO KIDNEY DISEASE IV Contrast Allergy (Uncoded 10/07/17 17:45) Home Medications: Medication Instructions Recorded Aspirin [Aspirin 81mg (*)] 81 mg PO DAILY 03/18/14 Atenolol [Tenormin 50 mg (*)] 50 mg PO DAILY 03/18/14 Herbals/Supplements -Info Only 1 ea PO DAILY 07/22/14 Warfarin Sodium [Coumadin 5MG (*)] 5 mg PO MWF 07/22/14 ALPRAZolam [Xanax 0.5 MG (*)] 0.5 mg PO 11/14/15 Denosumab [Prolia] 60 mg SQ Q180D 11/14/15 Warfarin Sodium [Coumadin 2.5MG 2.5 mg PO SUTUTHSA@16 07/16/16 (*)] C/E/Zn/Cu/OM3/DHA/EPA/LUT/ZEAX 1 each PO DAILY@12 09/22/17 [Preservision Areds 2 Softgel] Gabapentin [Neurontin 300 MG (*)] 300 mg PO TID 09/22/17 amLODIPine BESYLATE [Norvasc 2.5 2.5 mg PO HS 09/22/17 mg (*)] Lisinopril [Zestril 10 mg (*)] 10 mg PO DAILY tab 09/23/17 Areds 10/07/17 Calcium Chews 10/07/17 Medical Decision Making ED Course/Re-evaluation: 87-year-old woman on Coumadin presents with apparent lower GI bleed. Patient is hemodynamically stable. Her initial hemoglobin is within normal limits. Her INR here is 3. Given her age, her anticoagulated state with possible ongoing bleeding because of the blood in her vault she will be admitted for further evaluation treatment. I discussed the case with Dr. Lloyd Aragon, hospitalist family health nurse practitioner. I discussed the case with Dr. Hernandez, on-call for GI. - Data Points Laboratory Results: Laboratory Results 10/07/17 18:15 10/07/17 18:15 10/07/1718 10/07/17 18:15 18:15 18:15 WBC 9.65 10^3/uL H 10^3/uL (3.80-9.50) RBC 4.76 10^6/uL 10^6/uL (4.18-5.33) Hgb 13.8 g/dL g/dL (12.6-16.3) Hct 40.7 % % (38.0-47.0) MCV 85.5 fL fL (81.5-99.8) MCH 29.0 pg pg (27.9-34.1) MCHC 33.9 g/dL g/dL (32.4-36.7) RDW 13.3 % % (11.5-15.2) Plt Count 343 10^3/uL 10^3/uL (150-400) MPV 8.3 fL L fL (8.7-11.7) Neut % (Auto) 68.9 % % (39.3-74.2) Lymph % (Auto) 20.6 % % (15.0-45.0) Duval % (Auto) 6.0 % % (4.5-13.0) Eos % (Auto) 3.6 % % (0.6-7.6) Baso % (Auto) 0.6 % % (0.3-1.7) Nucleat RBC Rel Count 0.0 % % (0.0-0.2) Absolute Neuts (auto) 6.64 10^3/uL H 10^3/uL (1.70-6.50) Absolute Lymphs (auto) 1.99 10^3/uL 10^3/uL (1.00-3.00) Absolute Monos (auto) 0.58 10^3/uL 10^3/uL (0.30-0.80) Absolute Eos (auto) 0.35 10^3/uL 10^3/uL (0.03-0.40) Absolute Basos (auto) 0.06 10^3/uL 10^3/uL (0.02-0.10) Absolute Nucleated RBC 0.00 10^3/uL 10^3/uL (0-0.01) Immature Gran % 0.3 % % (0.0-1.1) Immature Gran # 0.03 10^3/uL 10^3/uL (0.00-0.10) PT 30.7 SEC H SEC (12.0-15.0) INR 3.05 H (0.83-1.16) APTT 59.3 SEC H SEC (23.0-38.0) Sodium 135 mEq/L mEq/L (135-145) Potassium 4.2 mEq/L mEq/L (3.5-5.2) Chloride 102 mEq/L mEq/L (97-110) Carbon Dioxide 22 mEq/l mEq/l (22-31) Anion Gap 11 mEq/L mEq/L (8-16) BUN 15 mg/dL mg/dL (7-23) Creatinine 1.1 mg/dL H mg/dL (0.6-1.0) Estimated GFR 47 Glucose 117 mg/dL H mg/dL (70-100) Calcium 9.3 mg/dL mg/dL (8.5-10.4) Departure - Departure Referrals: Sarath Lara MD [Primary Care Provider] - As per Instructions
[2017-10-07 18:20] LABS: PLATELET COUNT 343 10^3/uL (150-400)
[2017-10-07 18:31] LABS: INR 3.05 (0.83-1.16); PROTIME(PATIENT) 30.7 SEC (12.0-15.0)
[2017-10-07] MEDS ORDERED: amLODIPine BESYLATE 5 MG TAB ONE (20:38)
[2017-10-07] MEDS ORDERED: ONDANSETRON DISINTEGRATING 4 MG TAB PO PRN (21:56)
[2017-10-07] MEDS ORDERED: ACETAMINOPHEN 325 MG TAB PO PRN (21:56)
[2017-10-07] MEDS ORDERED: ONDANSETRON 4 MG/2 ML VIAL IVP PRN (21:56)
[2017-10-07] MEDS ORDERED: ALPRAZolam 0.25 MG TAB PO SCH (22:00)
--- NOTE | 2017-10-07 22:33 | GHP ---
[f rep st] HISTORY AND PHYSICAL DATE OF ADMISSION: 10/07/2017 CHIEF COMPLAINT: Bright red blood per rectum. HISTORY OF PRESENT ILLNESS: An 87-year-old female, on warfarin for atrial fibrillation, presents wit h an episode of bright red blood per rectum. She had felt constipated. She had to strain very hard to get her stool out. When she did, she saw blood in the toilet water. She has never had this befor e. Her last colonoscopy was in 2010. She believes she was told she had hemorrhoids then. She has s ome chronic left lower quadrant abdominal pain, which she always thinks is diverticulitis; however rashid s been told that it is not. She has not had any nausea. She cannot vomit as she has had a Gardenia fu ndoplication. She has ongoing problems with constipation, as well as sometimes diarrhea. In the [facility], rectal exam did not find any hemorrhoids or anal fissures. CT scan reviewed from April of 2017 shows sigmoid diverticulosis. She is not taking any NSAIDs due to her kidneys. She does not drink significant amounts of alcohol. PAST MEDICAL/SURGICAL HISTORY: 1. Atrial fibrillation, status post pacemaker, on chronic anticoagulation. 2. Hypertension. 3. Chronic kidney disease, stage 3 or 4. 4. GERD. 5. Right TKA. 6. Bilateral KRISTY. 7. Cholecystectomy. 8. Gardenia fundoplication. MEDICATIONS: Please see medication reconciliation. ALLERGIES: Hydrocodone, NSAIDs, IV contrast. SOCIAL HISTORY: She lives with her . She does not drink or smoke. FAMILY HISTORY: Parents are . REVIEW OF SYSTEMS: A 10-point review of systems is conducted and is negative except per HPI. PHYSICAL EXAMINATION: VITAL SIGNS: Blood pressure 179/95, heart rate 70, respiration rate 17, satur ating 95% on room air, temperature 36.8. IN GENERAL: The patient is a pleasant female who is restin g comfortably. No acute distress. HEENT: Shows her to be normocephalic, atraumatic. CARDIOVASCULA R: Regular rate and rhythm. No murmurs, rubs, or gallops. PULMONARY: Lungs clear to auscultation bilaterally. ABDOMEN: Some left lower quadrant tenderness to palpation. There is no guarding or re bound. This is non-peritoneal. She has normal bowel sounds. SKIN: No rash. : No Retana. NEURO LOGIC: Shows her to be alert and oriented x3. She is moving all extremities. PSYCHIATRIC: Normal mood and affect. LABS: White count is 9.6. INR is 3.0. Creatinine is 1.1. Otherwise, basic metabolic panel is norm al. DATA: 1. I discussed this with Dr. Monique. We will admit to Med/Surg. 2. I reviewed her CT abdomen as above, showing sigmoid diverticulosis. IMPRESSION AND PLAN: 1. Bright red blood per rectum: Unsure if this is hemorrhoids or diverticular. It is self-limited. Her INR is elevated. Given her hemodynamic stability and lack of ongoing bleeding, I do not think she needs to be reversed at this time. We will hold her warfarin. If she has more bleeding, would c ertainly reverse her. GI has already been consulted by the ED. 2. Atrial fibrillation, status post pacemaker: We will hold her warfarin as above. 3. Hypertension: She is somewhat hypertensive now. Would gently restart her antihypertensives give n the clinical situation. 4. Code status: She would like to be a Do Not Resuscitate. 5. VTE risk is moderate to high. However, with lower GI bleeding, we will hold any prophylaxis. /[id number]/MODL
[2017-10-07] MEDS: GABAPENTIN 300 MG CAP PO SCH (23:19)
[2017-10-08 03:18] LABS: PLATELET COUNT 293 10^3/uL (150-400)
[2017-10-08 07:30] VITALS: RESP 16
[2017-10-08] MEDS ORDERED: GABAPENTIN 250 MG/5 ML 30 ML BOTTLE PO SCH (09:00)
[2017-10-08] MEDS: ACETAMINOPHEN 650 MG/20.3 ML UDCUP PO PRN ×2 (09:18→13:13)
--- NOTE | 2017-10-08 09:36 | HOSPPROG ---
Hospitalist Progress Note Assessment/Plan: Patient is an 87-year-old female who presented the emergency room with bright red blood per rectum. She is on warfarin for atrial fibrillation. Today is my 1st encounter with the patient. Chart reviewed. * bright red blood per rectum -hemoglobin hematocrit are stable -reviewed her CT scan of the abdomen which shows sigmoid diverticulosis -reviewed note from GI/ diet as tolerated -holding aspirin and anticoagulation * atrial fibrillation status post pacemaker -on warfarin, this was held today * hypertension -resume Norvasc and lisinopril *plan: dc home after eating, h/h are stable Subjective: Ivanna is feeling well, her biggest concern is constipation. Objective: Vital Signs Temp Pulse Resp BP Pulse Ox 36.6 C 73 16 158/83 H 97 10/08/17 07:25 10/08/17 07:25 10/08/17 07:25 10/08/17 07:25 10/08/17 07:25 Laboratory Results 10/08/17 06:20 10/08/17 06:20 10/07/17 10/08/17 10/09/17 05:59 05:59 05:59 Intake Total 300 Output Total 200 Balance 100 PT 30.7 SEC (12.0-15.0) H 10/07/17 18:15 INR 3.05 (0.83-1.16) H 10/07/17 18:15 - Physical Exam Constitutional: no apparent distress, appears nourished Eyes: PERRL Ears, Nose, Mouth, Throat: hearing normal Cardiovascular: no murmur, rub, or gallop Respiratory: no respiratory distress Skin: warm Neurologic: AAOx3 Psychiatric: interacting appropriately ICD10 Worksheet Patient Problems: Problems Problem Status Onset Back pain Acute C. difficile diarrhea Acute 11/19/15 Chest pain Acute Elbow laceration Acute Fall Acute Knee pain, acute Acute Multiple contusions Acute Syncope Acute A-fib Chronic
[2017-10-08 09:57] LABS: INR 2.56 (0.83-1.16); PROTIME(PATIENT) 27.5 SEC (12.0-15.0)
[2017-10-08] MEDS: GABAPENTIN 300 MG CAP PO SCH (09:58)
--- NOTE | 2017-10-08 10:35 | GCON ---
[f rep st] CONSULTATION CHIEF COMPLAINT: Hematochezia. HISTORY OF PRESENT ILLNESS: I have been asked to see this very pleasant 87-year-old woman in consult ation from Dr. Lloyd Aragon for hematochezia. This 87-year-old woman has a history of diverticul osis and chronic constipation. She has a history also of sick sinus syndrome and atrial fibrillation , and has a pacemaker. She is also on chronic anticoagulation with warfarin. She had presented to [facility] emergency department after having 1 episode of hematochezia. She did strain on a very hard bowel movement. She saw blood in the toilet water. She had no associated abdominal pain, discomfort or li ghtheadedness. She has had a previous colonoscopy. Previous colonoscopy was in November of [address] Ar collins. She had very significant left-sided diverticulosis on that exam and a small polyp. She do es have a history of chronic lower abdominal discomfort secondary to diverticulosis. She has also rashid d a history of gastroesophageal reflux disease and has had a previous fundoplication. She does have significant problems with constipation and does take MiraLAX as needed for constipation. She denies any history of NSAID use. She does have a history of chronic kidney disease. She presented to the e mergency department. She was hemodynamically stable and had a normal hematocrit. No obvious hemorrh oids were reported per ER physician. I was asked to see patient for further evaluation and patient h as been admitted to the hospital for observation. She does have a family history of colon cancer in o ne of her parents. PAST MEDICAL HISTORY: 1. Remarkable for atrial fibrillation status post pacemaker, chronic anticoagulation and sick sinus syndrome, history of hypertension. 2. Chronic kidney disease stage 3 or 4. 3. GERD. 4. History of peripheral neuropathy with chronic lower extremity pain. 5. Right total knee and arthroscopy, bilateral total hip arthroscopy, cholecystectomy, previous fund oplication. MEDICATIONS PRIOR TO ADMISSION: Tenormin, aspirin 81 mg daily, herbal supplements, warfarin, Xanax, Prolia subcutaneous, gabapentin, Norvasc, lisinopril and calcium carbonate. SOCIAL HISTORY: She lives with her who is 90. They live independently. She is a nonsmoker a nd nondrinker. ALLERGIES: Hydrocodone, NSAIDs and IV contrast. FAMILY HISTORY: One of her parents had colon cancer REVIEW OF SYSTEMS: Negative 10 systems other than mentioned in HPI. PHYSICAL EXAMINATION: VITAL SIGNS: 153/83, pulse of 73, respiratory rate of 16, 97% saturation on 1 L oxygen nasal cannula, 36.6 Celsius temperature. GENERAL: A very pleasant woman in no acute distress . HEENT: Normocephalic, atraumatic. EOMI. NECK: Supple. No cervical adenopathy. LUNGS: Clear. CARDIAC: Exam irregularly irregular rhythm. ABDOMEN: Soft, normal bowel sounds. No hepatosplenom egaly. Nontender. EXTREMITIES: Painful lower extremities without edema. No clubbing or cyanosis. S KIN: Warm, dry, and intact. NEUROLOGIC: Nonfocal. PSYCHIATRIC: Alert oriented x3 with normal affect . LABORATORY DATA: Hemoglobin of 15.0 with hematocrit of 43.7, PT of 27.5, INR of 2.56, serum sodium 1 39, potassium 4.0, chloride of 107, CO2 25, BUN of 17, creatinine is 1.0. IMPRESSION: 1. 87-year-old woman with history of diverticulosis and chronic constipation on chronic anticoagulat ion. She has had previous colonoscopy in 2010 with findings of significant diverticulosis. The usha ent had associated rectal bleeding with straining of stool. She has been hemodynamically stable with out change in hematocrit. Suspect anorectal source of bleeding in the setting of anticoagulation/Cou madin. RECOMMENDATIONS: 1. Observe serial H and H today in the hospital. 2. Clear liquid diet. If stable, would advance as tolerated to a regular diet. 3. Given her age and known history of diverticulosis, would not proceed with colonoscopy at this poi nt. Will follow clinically. Thank for allowing me to participate in the care of this patient. /[id number]/MODL
[2017-10-08] MEDS ORDERED: LISINOPRIL 10 MG TAB PO SCH ×2 (10:45→11:45)
[2017-10-08 11:43] VITALS: BP 171/85
[2017-10-08 11:45] VITALS: PULSE 72; TEMP 98; O2SAT 92
--- NOTE | 2017-10-08 12:29 | ASMTCMCOM ---
CM Note CM Note Notes: Recieved call from Pascale at [facility], pt is current with them. Pt getting discharged today, no orders necessary. DC Plan: Resume homecare/[facility] Date Signed: 10/08/2017 12:29 PM Electronically Signed By:Corinne Castillo RN
--- NOTE | 2017-10-08 12:36 | ASMTLACE ---
LACE Length of stay for Answers: 1 day current admission Acuity / Level of Answers: No Care: Did the patient have an inpatient admission? Comorbidities - select Answers: Coronary Artery Disease all that apply Mild liver or renal disease Other Notes: HTN, CKD, HLD, # of Emergency department Answers: 1-2 visits in the last 6 months Score: 7 Date Signed: 10/08/2017 12:36 PM Electronically Signed By:Corinne Castillo RN
--- NOTE | 2017-10-08 14:16 | GDS ---
[f rep st] DISCHARGE SUMMARY DISCHARGE DIAGNOSIS: 1. Concern for gastrointestinal bleed, bright red blood per rectum. 2. Atrial fibrillation, status post pacemaker. 3. Hypertension. BRIEF HISTORY: Briefly, the patient is an 87-year-old female who presented to the emergency room wit h bright red blood per rectum. She is on warfarin for atrial fibrillation. I reviewed her care with Dr. Hernandez. The recommendation is to do serial H and Hs and if she is tolerating a regular diet to discharge home. CONSULTATION: Dr. Mark Hernandez. HOSPITAL COURSE: 1. Bright red blood per rectum. Hemoglobin and hematocrit are stable. I reviewed her CT scan of e abdomen which showed sigmoid diverticulosis. I held her aspirin anticoagulation. I am recommendin g she start her warfarin tomorrow. 2. Atrial fibrillation. She is status post pacemaker, stable. 3. Hypertension. Resumed her Norvasc and lisinopril. DISCHARGE CONDITION: Stable. Blood pressure is 158/83, O2 saturations on room air 97%, respiratory r ate is 16, pulse is 73, temperature is 36.3 Celsius. MEDICATIONS AT DISCHARGE: Please see the EMR. DISCHARGE INSTRUCTIONS: 1. The patient suffers from constipation. Made multiple recommendations with the patient and her da ughter on good stool regimens. 2. She is on Coumadin and has had trouble controlling her INR. Recommended she further follow up [facility] and home Dr. Zapata in regard to this. 3. If she develops any further bleeding, to return to the ER. /[id number]/MODL
[2017-10-08] MEDS ORDERED: GABAPENTIN 300 MG CAP PO SCH (16:00)
[2017-10-08] MEDS ORDERED: amLODIPine BESYLATE 5 MG TAB PO ONE (20:41)
[2017-10-08] MEDS ORDERED: ALPRAZolam 0.5 MG TAB PO SCH (21:00)
[2017-10-09] MEDS ORDERED: LISINOPRIL 10 MG TAB PO SCH (09:00)
[2017-10-09] MEDS ORDERED: ATENOLOL 50 MG TAB PO SCH (09:00)
== END 2017-10-08 13:35 | disposition home or self-care (01) ==
LOC: CED 17:31 → CEDHOLD 19:11 → F3E 21:30
PROVIDERS: ADMIT Student in an Organized Health Care Education/Training Program; ATTEND Hospitalist
DX: K92.1 Melena (principal); K21.9 Gastro-esophageal reflux disease without esophagitis; I12.9 Hypertensive chronic kidney disease with stage 1 through stage 4 chronic kidney disease, or unspecified chronic kidney disease; I48.91 Unspecified atrial fibrillation; K59.00 Constipation, unspecified; E78.5 Hyperlipidemia, unspecified; M81.0 Age-related osteoporosis without current pathological fracture; N18.4 Chronic kidney disease, stage 4 (severe); Z96.651 Presence of right artificial knee joint; Z96.643 Presence of artificial hip joint, bilateral; Z86.010 Personal history of colon polyps; Z79.01 Long term (current) use of anticoagulants; Z95.0 Presence of cardiac pacemaker
CPT/HCPCS: G0378 ×2; 80048-PO; 85025-PO; 85610-PO; 85730-PO

== ENCOUNTER 2018-10-25 12:59 | Emergency (ER) | payer OTHER, MEDICARE ==
[2018-10-25 13:20] LABS: PLATELET COUNT 316 10^3/uL (150-400)
--- NOTE | 2018-10-25 13:29 | EDPHY ---
H & P Stated Complaint: pre syncopal - Medical/Surgical History Hx Asthma: No Hx Chronic Respiratory Disease: No Hx Diabetes: No Hx Cardiac Disease: Yes Hx Renal Disease: Yes Hx Cirrhosis: No Hx Alcoholism: No Hx HIV/AIDS: No Hx Splenectomy or Spleen Trauma: No Other PMH: 1. HTN. 2. HYPERLIP. 3. AFIB status post PACEMAKER. 4. NEUROPATHY. 5. OSTEOSPOROSIS. 6. AUTONOMIC DYSFX. 7. CHRONIC KIDNEY DZ STG 4, . 8. gall bladder removal. 9. fundiplacation. 10. GOUT. 11. DIVERTICULITIS. 12. Orthopedic surgeries including a right hip arthroplasty and right knee arthroplasty. 13.Cataracts - Social History Smoking Status: Never smoked Time Seen by Provider: 10/25/18 13:26 HPI/ROS: CHIEF COMPLAINT: Syncope HISTORY OF PRESENT ILLNESS: 88-year-old female with atrial fibrillation and pacemaker presents after a syncopal episode. She was in the shower, started to feel lightheaded and sat down in a chair.. She then became diaphoretic and had a syncopal episode. Her caregiver found her slumped back in the chair, unresponsive for a few moments. She did not fall to the floor. No chest pain, shortness of breath or headache. REVIEW OF SYSTEMS: complete 10 point ROS reviewed and is negative except for the noted elements in the HPI (Kiara Ott S) - Physical Exam Exam: General Appearance: Alert, pleasant Eyes: Pupils equal and round, no conjunctival pallor ENT, Mouth: Mucous membranes moist Neck: Normal inspection Respiratory: Lungs are clear to auscultation Cardiovascular: Regular rate and rhythm Gastrointestinal: Abdomen is soft and nontender Neurological: A&O, nonfocal exam Skin: Warm and dry Extremities: Normal inspection Psychiatric: Mood and affect normal (Kiara Ott S) Constitutional: Initial Vital Signs Temperature (C) 36.8 C 10/25/18 13:00 Heart Rate 70 10/25/18 13:00 Respiratory Rate 16 10/25/18 13:00 Blood Pressure 156/64 H 10/25/18 13:00 O2 Sat (%) 97 10/25/18 13:00 O2 Delivery Mode Room Air Allergies/Adverse Reactions: hydrocodone Allergy (Intermediate, Verified 10/25/18 13:02) Flushing NSAIDS (Non-Steroidal Anti-Inflamma [NSAIDS (Non-Steroidal Anti-Inflammatory Drug)] Allergy (Unknown, Verified 10/25/18 13:02) RELATED TO KIDNEY DISEASE IV Contrast Allergy (Uncoded 10/25/18 13:02) Home Medications: Medication Instructions Recorded Aspirin [Aspirin 81mg (*)] 81 mg PO DAILY 03/18/14 Atenolol [Tenormin 50 mg (*)] 50 mg PO DAILY 03/18/14 Herbals/Supplements -Info Only 1 ea PO DAILY 07/22/14 Warfarin Sodium [Coumadin 5MG (*)] 5 mg PO MWF 07/22/14 ALPRAZolam [Xanax 0.5 MG (*)] 0.5 mg PO HS 11/14/15 Denosumab [Prolia] 60 mg SQ Q180D 11/14/15 Warfarin Sodium [Coumadin 2.5MG 2.5 mg PO SUTUTHSA@16 07/16/16 (*)] C/E/Zn/Cu/OM3/DHA/EPA/LUT/ZEAX 1 each PO DAILY@12 09/22/17 [Preservision Areds 2 Softgel] Gabapentin [Neurontin 300 MG (*)] 300 mg PO TID 09/22/17 amLODIPine BESYLATE [Norvasc 2.5 2.5 mg PO HS 09/22/17 mg (*)] Lisinopril [Zestril 10 mg (*)] 10 mg PO DAILY tab 09/23/17 Calcium Carbonate [Calcium] 1,000 mg PO DAILY 10/07/17 Medical Decision Making ED Course/Re-evaluation: This patient presents after a syncopal episode. She is currently asymptomatic and neurologic exam is unremarkable. Stat EKG reveals an atrial paced rhythm. Will have her pacemaker interrogated. 1415: signed over to Dr. Hannah. Plan to d/c home if pacemaker interrogation reveals no significant dysrhythmia. (Kiara Ott) 1535: I consulted with the pacemaker commercial representative. She reports that the pacemaker interrogation was normal around the time of the syncopal event. This patient is safe to be discharged home. 1539: Reassessed patient and discussed pacemaker interrogation. Return precautions provided; patient is comfortable with this plan. (Paxton Hannah) Differential Diagnosis: Differential diagnosis includes though is not limited to cardiac dysrhythmia, CVA, TIA, GI bleed, sepsis, hypoglycemia. (Kiara Ott) - Data Points Laboratory Results: Laboratory Results 10/25/18 13:10 10/25/18 13:10 10/25/18 10/25/18 10/25/18 13:12 13:10 13:10 WBC RBC Hgb Hct MCV MCH MCHC RDW Plt Count MPV Neut % (Auto) Lymph % (Auto) [place] % (Auto) Eos % (Auto) Baso % (Auto) Nucleat RBC Rel Count Absolute Neuts (auto) Absolute Lymphs (auto) Absolute Monos (auto) Absolute Eos (auto) Absolute Basos (auto) Absolute Nucleated RBC Immature Gran % Immature Gran # PT 18.5 SEC H SEC (12.0-15.0) INR 1.62 H (0.83-1.16) Sodium 137 mEq/L mEq/L (135-145) Potassium 4.1 mEq/L mEq/L (3.5-5.2) Chloride 101 mEq/L mEq/L (97-110) Carbon Dioxide 24 mEq/l mEq/l (22-31) Anion Gap 12 mEq/L mEq/L (6-14) BUN 19 mg/dL mg/dL (7-23) Creatinine 1.3 mg/dL H mg/dL (0.6-1.0) Estimated GFR 39 Glucose 125 mg/dL H mg/dL (70-100) Calcium 9.6 mg/dL mg/dL (8.5-10.4) POC Troponin I 0.01 ng/mL ng/mL (0.00-0.08) 10/25/18 13:10 WBC 8.54 10^3/uL 10^3/uL (3.80-9.50) RBC 4.96 10^6/uL 10^6/uL (4.18-5.33) Hgb 14.5 g/dL g/dL (12.6-16.3) Hct 43.5 % % (38.0-47.0) MCV 87.7 fL fL (81.5-99.8) MCH 29.2 pg pg (27.9-34.1) MCHC 33.3 g/dL g/dL (32.4-36.7) RDW 14.0 % % (11.5-15.2) Plt Count 316 10^3/uL 10^3/uL (150-400) MPV 8.6 fL L fL (8.7-11.7) Neut % (Auto) 64.4 % % (39.3-74.2) Lymph % (Auto) 24.1 % % (15.0-45.0) [place] % (Auto) 8.3 % % (4.5-13.0) Eos % (Auto) 2.1 % % (0.6-7.6) Baso % (Auto) 0.7 % % (0.3-1.7) Nucleat RBC Rel Count 0.0 % % (0.0-0.2) Absolute Neuts (auto) 5.50 10^3/uL 10^3/uL (1.70-6.50) Absolute Lymphs (auto) 2.06 10^3/uL 10^3/uL (1.00-3.00) Absolute Monos (auto) 0.71 10^3/uL 10^3/uL (0.30-0.80) Absolute Eos (auto) 0.18 10^3/uL 10^3/uL (0.03-0.40) Absolute Basos (auto) 0.06 10^3/uL 10^3/uL (0.02-0.10) Absolute Nucleated RBC 0.00 10^3/uL 10^3/uL (0-0.01) Immature Gran % 0.4 % % (0.0-1.1) Immature Gran # 0.03 10^3/uL 10^3/uL (0.00-0.10) PT INR Sodium Potassium Chloride Carbon Dioxide Anion Gap BUN Creatinine Estimated GFR Glucose Calcium POC Troponin I Point of Care Test Results: Chemistry 10/25/18 13:12 POC Troponin I 0.01 ng/mL ng/mL (0.00-0.08) Departure - Departure Disposition: Home, Routine, Self-Care Clinical Impression: Syncope Qualifiers: Syncope type: vasovagal syncope Qualified Code(s): R55 - Syncope and collapse Condition: Good Instructions: Syncope (ED) Additional Instructions: 1. Follow-up with your primary care physician within 72 hours. 2. Return to the emergency department immediately for headache, nausea, vomiting , numbness, weakness, neck pain, fever or other concerns. Referrals: Dea Bateman PA [Primary Care Provider] - 2-3 days, call for appt.
[2018-10-25 14:35] LABS: INR 1.62 (0.83-1.16); PROTIME(PATIENT) 18.5 SEC (12.0-15.0)
[2018-10-25 15:56] VITALS: BP 145/98
--- NOTE | 2018-11-01 08:24 | CPEKG ---
Test Reason : OPEN Blood Pressure : / mmHG Vent. Rate : 071 BPM Atrial Rate : 128 BPM P-R Int : 211 ms QRS Dur : 135 ms QT Int : 432 ms P-R-T Axes : 030 -36 101 degrees QTc Int : 470 ms Atrial-paced complexes Left bundle branch block Confirmed by Kiara Ott ([id number]) on 11/01/2018 8:23:32 AM Referred By: Kiara Ott Confirmed By:Kiara Ott
== END 2018-10-25 16:06 | disposition home or self-care (01) ==
LOC: EDUNIT#
DX: R55 Syncope and collapse (principal); I48.91 Unspecified atrial fibrillation; Z95.0 Presence of cardiac pacemaker
CPT/HCPCS: 84484-ER